=== PATIENT | female | born 1995 | race Caucasian/White ===

== ENCOUNTER 2019-03-13 14:23 | Emergency (ER) | payer MEDICAID ==
[~2019-03-13] VITALS: Ht 162.6 cm; Wt 65.3 kg
[2019-03-13 14:47] VITALS: Ht 162.6 cm; Wt 65.3 kg
[2019-03-13 16:27] VITALS: BP 108/67
== END 2019-03-13 16:27 | disposition home or self-care (01) ==
LOC: ED 14:23
DX: S61.101A Unspecified open wound of right thumb with damage to nail, initial encounter (principal); X58.XXXA Exposure to other specified factors, initial encounter; Y93.89 Activity, other specified; Y92.89 Other specified places as the place of occurrence of the external cause; Y99.8 Other external cause status